=== PATIENT | female | born 1970 | race Caucasian/White ===

== ENCOUNTER 2017-10-19 07:22 | Emergency (ER) | payer OTHER ==
[2017-10-19 07:41] VITALS: BP 134/76
[2017-10-19] MEDS ORDERED: Albuterol/Ipratropium NEB.SOL* Albuterol 2.5 MG/Ipratropium 0.5 MG 3 ML INH ONE (07:56)
--- NOTE | 2017-10-19 08:05 | UC ---
Ayla Thomson Nilda, scribed for Sheila Joyner MD on 10/19/17 at 0746 . FLU HPI - HPI Summary HPI Summary: This patient is a 47 year old F [place] [facility] [place] a [place] complaint of constant flu-like symptoms for about a week. The patient rates the pain 6/10 in severity. Symptoms aggravated by movement and alleviated by rest and ibuprofen. Patient reports barking cough, fever (98.8-100.9F, since 10/17/17), myalgia, headache, fatigue, and burning lungs (since 10/13/17). Patient denies SOB. Pt states her cough is painful and tastes bloody. Pt notes shes on no prescribed medications. She states she has not used ibuprofen today. Nyquil last night. PT has not used her mdI since because did not think about it. Pt is non-smoker and does not drink ETOH. Pt has had recent sick contacts with students. Patients medication reviewed this visit. - History of Current Complaint Chief Complaint: UCGeneralIllness Stated Complaint: COUGH, FEVER Time Seen by Provider: 10/19/17 07:29 Hx Obtained From: Patient Hx Last Menstrual Period: 09/19/2017 Onset/Duration: Sudden Onset, Lasting Weeks, Still Present Severity Initially: Moderate Pain Intensity: 6 Pain Scale Used: 0-10 Numeric Associated Signs & Symptoms: Positive: Fever, T Max - 100.9 F, Myalgia, Cough, Headache - Allergy/Home Medications Allergies/Adverse Reactions: Allergies Allergy/AdvReac Type Severity Reaction Status Date / Time No Known Allergies Allergy Verified 10/19/17 07:32 PMH/Surg Hx/FS Hx/Imm Hx - Additional Past Medical History Additional PMH: scoliosis Previously Healthy: Yes Cardiovascular History: Other Other Cardiovascular History: Palpitations Respiratory History: Asthma, Other Other Respiratory History: sleep apnea, seasonal allergies Psychological History: Anxiety, Depression - Surgical History Surgical History: Yes Surgery Procedure, Year, and Place: COSMETIC EYE LID SURGERY. LASIK EYE SURGERY. CYST REMOVED FROM RIGHT THIGH - Family History Known Family History: Positive: Other - breast CA Negative: Cardiac Disease, Hypertension, Diabetes - Social History Occupation: Employed Full-time Lives: Alone Alcohol Use: Occasionally Alcohol Amount: 1-2 PER WEEK Substance Use Type: None Smoking Status (MU): Former Smoker Amount Used/How Often: 10 YEARS X1 PPD Have You Smoked in the Last Year: No When Did the Patient Quit Smoking/Using Tobacco: 1997 Review of Systems Constitutional: Fever, Fatigue ENT: Sore Throat, Nasal Discharge, Sinus Congestion Respiratory: Cough - painful, tastes bloody, Other - burning lungs; negative SOB Musculoskeletal: Myalgia Neurological: Headache All Other Systems Reviewed And Are Negative: Yes Physical Exam Triage Information Reviewed: Yes Completion Of Physical Exam Limited Due To: Altered Mental Status Appearance: Well-Nourished, Other: - coarse appearing cough Vital Signs: Initial Vital Signs Temp 99.5 F 10/19/17 07:33 Pulse 71 10/19/17 07:33 Resp 20 10/19/17 07:33 BP 134/76 10/19/17 07:33 Pulse Ox 99 10/19/17 07:33 Vital Signs Reviewed: Yes Eye Exam: Normal Eyes: Positive: Conjunctiva Clear ENT Exam: Normal ENT: Positive: Normal ENT inspection, Hearing grossly normal, Pharyngeal erythema, Nasal congestion, TMs normal, Other - turbinates inflammed and boggy Dental Exam: Normal Neck exam: Normal Neck: Positive: Supple, Nontender, No Lymphadenopathy Respiratory Exam: Normal Respiratory: Positive: Chest non-tender, No respiratory distress, No accessory muscle use, Other: - + coarse, congested cough scattered wheeze No rhonci Cardiovascular Exam: Normal Cardiovascular: Positive: RRR, No Murmur, Pulses Normal Bowel Sounds: Positive: Present Musculoskeletal Exam: Normal Musculoskeletal: Positive: Strength Intact Neurological Exam: Normal Neurological: Positive: Alert Psychological Exam: Normal Psychological: Positive: Normal Response To Family Skin Exam: Normal Diagnostics - Radiology cxr Radiology Interpretation Completed By: Radiologist - CXR, per radiologist, reveals THE MILD DEGREE OF PERIBRONCHIAL CUFFING COULD BE SEEN IN THE SETTING OF VIRAL PNEUMONIA, BRONCHITIS OR OTHER INFLAMMATORY LUNG DISEASE. Dr. Joyner has reviewed this radiology report. Re-Evaluation - Re-Evaluation First Eval Re-Evaluation Time: 08:44 Change: Improved Comment: Pt reports breathing feels markedly improved. wheezing resolved. motrin/apap. MDI. hydrate. secretion precautin. work note Flu Course/Dx - Course Course Of Treatment: PT with cough, congestion x 4 days with body aches. Pt has been taking OTC med with intermittent relief. + flu exposure. Pt with wheeze on exam. will check CXR and duoneb. no tamiflu second to duration - Differential Dx/Diagnosis Provider Diagnoses: influenza like syndrome Discharge - Discharge Plan Condition: Stable Disposition: HOME Prescriptions: Albuterol HFA INHALER* [Ventolin HFA Inhaler*] 1 puff INH Q4H PRN #1 mdi PRN Reason: wheeze Spacer/Aerosol-Holding Chamber [Aerochamber Mv] 1 mis PO Q24HR #1 mis Patient Education Materials: Influenza (ED) Referrals: Taylor Lala MD [Primary Care Provider] - Additional Instructions: - Stay well hydrated. Drink plenty of non-alcoholic, non-caffinated beverages. - Alternate ibuprofen (Advil, Motrin) 600mg and Tylenol every 3 hours for pain or fever. Take with food. Do NOT take for more than 4-5 days. - These infections are spread by secretions - do NOT share eating or drinking utensils - clean items you share with other people such as cell phones, computer mouse, TV remote, computer tablets, etc. once you start to feel better , change your toothbrush and your pillowcase. - talk to your CPAP supplier to discuss cleansing your equiptment - get plenty of restful sleep - Use your inhaler, 2 puffs, every 4 hours today. then every 4 hours as needed - humidify the air in the room where you sleep - boil water, run a hot steam shower, vaporizer, cups of water by heat register - okay to take over the counter decongestant and cough medication - contact your doctor or return with questions or concerns The documentation as recorded by the Ayla lilly Nilda accurately reflects the service I personally performed and the decisions made by me, Sheila Joyner MD.
--- NOTE | 2017-10-19 08:34 | RAD ---
INDICATION: Cough and fever COMPARISON: None TECHNIQUE: PA and lateral views of the chest were obtained. FINDINGS: The heart and mediastinum are normal in size and contour. There is a very mild degree of peribronchial cuffing. Otherwise the lungs are grossly clear. There is no evidence of large pleural effusion. Visualized bones are normal for the patient's age. There is no radiographic evidence of free air beneath the diaphragm IMPRESSION: THE MILD DEGREE OF PERIBRONCHIAL CUFFING COULD BE SEEN IN THE SETTING OF VIRAL PNEUMONIA, BRONCHITIS OR OTHER INFLAMMATORY LUNG DISEASE.
== END 2017-10-19 08:50 | disposition home or self-care (01) ==
LOC: UCEAST 07:22
DX: J11.1 Influenza due to unidentified influenza virus with other respiratory manifestations (principal); Z87.891 Personal history of nicotine dependence
CPT/HCPCS: 71046; 99212; A9270-GY; G0463

== ENCOUNTER 2017-12-14 08:30 | Emergency (ER) | payer OTHER ==
[2017-12-14 08:40] VITALS: BP 143/80
[2017-12-14] MEDS ORDERED: Naproxen TAB* 250 MG PO ONE (09:31)
--- NOTE | 2017-12-14 10:04 | RAD ---
HISTORY: Acute worsening chronic lower thoracic pain COMPARISONS: May 21, 2009 VIEWS: 4, Frontal and lateral views of the lower thoracic and lumbar spine while weightbearing. FINDINGS: ALIGNMENT: The alignment is normal. VERTEBRAL BODIES: The vertebral body heights are normal. The interpedicular distances are normal. JOINTS: There is facet osteoarthritis at L4-L5 and L5-S1 INTERVERTEBRAL DISCS: There is mild diffuse loss of intervertebral disc height. SOFT TISSUE: Unremarkable OTHER: The visualized lungs are clear. IMPRESSION: 1. MILD DEGENERATIVE DISC DISEASE. 2. FACET OSTEOARTHRITIS AT L4-L5 AND L5-S1
--- NOTE | 2017-12-14 10:05 | UC ---
Back Pain HPI - HPI Summary HPI Summary: 47 yo female with hx of chronic thoracic pain presents with the acute worsening of thoracic pain while trying to apply lotion to her back also has had LBP x a month which is new for her no bowel or bladder dysfunction - History of Current Complaint Chief Complaint: UCBackPain Stated Complaint: BACK PAIN Time Seen by Provider: 12/14/17 09:17 Hx Obtained From: Patient Hx Last Menstrual Period: 12/09/17 Onset/Duration: Sudden Onset - of worsening pain Timing: Constant Severity Initially: Severe Severity Currently: Severe Pain Intensity: 7 Pain Scale Used: 0-10 Numeric Character: Aching, Throbbing, Spasmodic Aggravating Factor(s): Movement Alleviating Factor(s): Nothing - Allergies/Home Medications Allergies/Adverse Reactions: Allergies Allergy/AdvReac Type Severity Reaction Status Date / Time No Known Allergies Allergy Verified 12/14/17 08:32 PMH/Surg Hx/FS Hx/Imm Hx Previously Healthy: Yes - Surgical History Surgical History: None Surgery Procedure, Year, and Place: COSMETIC EYE LID SURGERY. LASIK EYE SURGERY. CYST REMOVED FROM RIGHT THIGH - Family History Known Family History: Positive: Other - breast CA Negative: Cardiac Disease, Hypertension, Diabetes - Social History Alcohol Use: Occasionally Alcohol Amount: 1-2 PER WEEK Substance Use Type: None Smoking Status (MU): Former Smoker Amount Used/How Often: 10 YEARS X1 PPD Have You Smoked in the Last Year: No When Did the Patient Quit Smoking/Using Tobacco: 1997 Review of Systems Constitutional: Negative Skin: Negative Eyes: Negative ENT: Negative Respiratory: Negative Cardiovascular: Negative Gastrointestinal: Negative Genitourinary: Negative Motor: Negative Neurovascular: Negative Musculoskeletal: Myalgia Neurological: Negative Psychological: Negative Is Patient Immunocompromised?: No All Other Systems Reviewed And Are Negative: Yes Physical Exam Triage Information Reviewed: Yes Appearance: Well-Appearing, No Pain Distress, Well-Nourished Vital Signs: Initial Vital Signs Temp 98.3 F 12/14/17 08:37 Pulse 57 12/14/17 08:37 Resp 15 12/14/17 08:37 BP 143/80 12/14/17 08:37 Pulse Ox 100 12/14/17 08:37 Vital Signs Reviewed: Yes Eyes: Positive: Conjunctiva Clear ENT: Positive: Hearing grossly normal, Uvula midline. Negative: Nasal congestion, Nasal drainage, Trismus, Muffled voice, Hoarse voice Neck: Positive: Supple, Nontender, No Lymphadenopathy Respiratory: Positive: Lungs clear, Normal breath sounds, No respiratory distress, No accessory muscle use Cardiovascular: Positive: RRR, No Murmur Musculoskeletal: Positive: ROM Intact, No Edema Neurological: Positive: Alert, Other: - slow wide based gait, sensation intact Psychological Exam: Normal Skin Exam: Normal Diagnostics - Radiology No standard instances Xray Interpretation: No Acute Changes - 1. MILD DEGENERATIVE DISC DISEASE. 2. FACET OSTEOARTHRITIS AT L4-L5 AND L5-S1 Radiology Interpretation Completed By: Radiologist Back Pain Course/Dx - Differential Dx/Diagnosis Provider Diagnoses: lumbar strain. thoracic strain Discharge - Sign-Out/Discharge Documenting (check all that apply): Discharge - Discharge Plan Condition: Stable Disposition: HOME Patient Education Materials: Low Back Strain (ED), Thoracic Pain (ED) Referrals: Taylor Lala MD [Primary Care Provider] - 2 Weeks Additional Instructions: PT consult don't take muscle relaxant and drive or work aleve 1-2 twice daily with food for pain - Billing Disposition and Condition Condition: STABLE Disposition: HOME Images Front/Back of Body, Lg (Loup): 1 - pain 2 - pain
== END 2017-12-14 10:28 | disposition home or self-care (01) ==
LOC: UCEAST 08:30
DX: S39.012A Strain of muscle, fascia and tendon of lower back, initial encounter (principal); S29.012A Strain of muscle and tendon of back wall of thorax, initial encounter; X50.1XXA Overexertion from prolonged static or awkward postures, initial encounter; Y93.9 Activity, unspecified; Y92.9 Unspecified place or not applicable; M51.35 Other intervertebral disc degeneration, thoracolumbar region; M47.817 Spondylosis without myelopathy or radiculopathy, lumbosacral region; Z87.891 Personal history of nicotine dependence
CPT/HCPCS: 72080; 99212; A9270-GY; G0463

== ENCOUNTER 2018-06-26 06:20 | Day surgery (SDC) | payer OTHER ==
[~2018-06-26 06:20] MED LIST: Acetaminophen TAB* 325 MG PO PRN; Buffered Lidocaine 0.9% SYRIN* 5 ML/SYR SYRINGE INTRADERM ONE
[2018-06-26] MEDS ORDERED: Midazolam* 1 MG/ML 5 ML VIAL (5 MG) ONE (07:27)
[2018-06-26] MEDS ORDERED: Ondansetron INJ* 2 MG/ML VIAL ONE (07:28)
[2018-06-26] MEDS ORDERED: DiMENhydriNATE IV* 50 MG/ML VIAL ONE (07:28)
[2018-06-26] MEDS ORDERED: Cyclopentolate 1% OPTH.SOL* 2 ML BTL ONE (07:59)
[2018-06-26] MEDS ORDERED: Povidone Iodine 5% OPTH* 30 ML BTL ONE (07:59)
[2018-06-26] MEDS ORDERED: Tetracaine 0.5% OPTH.SOL 4 ML* 1 DROP BTL ONE (07:59)
[2018-06-26] MEDS ORDERED: Ketorolac 0.5% OPHTH (NF) 0.5 % 5 ML BTL ONE (07:59)
[2018-06-26] MEDS ORDERED: acetaZOLAMIDE TAB* 250 MG ONE (07:59)
[2018-06-26] MEDS ORDERED: Phenylephrine 2.5% OPTH.SOL* 2 ML BTL ONE (07:59)
[2018-06-26] MEDS ORDERED: Lidocaine 1%* 5 ML VIAL ONE (07:59)
[2018-06-26] MEDS ORDERED: Tropicamide 1% OPTH.SOL* BTL ONE (07:59)
[2018-06-26] MEDS ORDERED: Neomycin/Polymy/Dex OPHTH.OIN* 3.5 GM ONE (07:59)
[2018-06-26 08:16] VITALS: BP 130/75
--- NOTE | 2018-06-26 10:27 | OP ---
DATE OF OPERATION: 06/26/18 - [facility] DATE OF : 66 SURGEON: Kyle May MD ANESTHESIA: Monitored anesthesia care. PREOPERATIVE DIAGNOSIS: Cataract, left eye. POSTOPERATIVE DIAGNOSIS: Cataract, left eye. OPERATIVE PROCEDURE: Extracapsular cataract extraction of the left eye with intraocular lens implant. IMPLANT: SN60WF 17.0 diopter lens to the left eye. COMPLICATIONS: None. DESCRIPTION OF PROCEDURE: The patient was given phenylephrine 2.5 % and cyclopentolate 1% eye drops to the operative eye in the preoperative area. The patient was taken to the operating room where a time-out was taken to identify the correct patient, site, and side of surgery. The patient's left eye was prepped and draped in the usual sterile fashion with 5% Betadine. A second time- out was taken to verify the correct patient, side, and site of surgery, as well as the correct lens implant. A lid speculum was placed to the left eye. A 1mm paracentesis blade was used to make a clear corneal incision. Preservative-free 1% lidocaine was injected into the anterior chamber. DisCoVisc was then injected into the anterior chamber. A 2.75 mm keratome blade was used to make a triplanar incision. A cystotome initiated a capsulorrhexis, which was completed with Utrata forceps in a continuous and curvilinear manner. Hydrodissection of the lens was performed with BSS on a cannula. The lens could be spun in a capsular bag. The phacoemulsification handpiece was used with a divide-and- conquer technique to remove the nucleus. The I/A handpiece then removed the residual cortical lens material. DisCoVisc was injected to inflate the capsular bag. The planned SN60WF 17.0 diopter lens was injected into the capsular bag. The residual DisCoVisc was removed from the eye with the I/A handpiece. The corneal incisions were hydrated and no leaks occurred at physiologic pressure around 20 mmHg per palpation. The lid speculum was removed and drapes were removed. Maxitrol ointment was placed to the surface of the operative eye. An adhesive patch and shield was then placed on the operative eye. The patient was taken to the postoperative area in stable condition. [id number]/[facility] #: [id number] [facility]
== END 2018-06-26 08:18 | disposition home or self-care (01) ==
LOC: OREAST 06:20
PROVIDERS: ATTEND Student in an Organized Health Care Education/Training Program
DX: H25.042 Posterior subcapsular polar age-related cataract, left eye (principal); H50.34 Intermittent alternating exotropia; H25.041 Posterior subcapsular polar age-related cataract, right eye; H02.421 Myogenic ptosis of right eyelid; G47.33 Obstructive sleep apnea (adult) (pediatric); F33.9 Major depressive disorder, recurrent, unspecified; Z87.891 Personal history of nicotine dependence; J30.89 Other allergic rhinitis
CPT/HCPCS: A9270-GY; J1240; J2250; J2405; V2632

== ENCOUNTER 2019-08-23 07:24 | Emergency (ER) | payer OTHER ==
[2019-08-23 07:31] VITALS: BP 126/59
--- NOTE | 2019-08-23 08:03 | UC ---
Throat Pain/Nasal Dewey HPI - HPI Summary HPI Summary: 48-year-old female comes in with a chief complaint of upper respiratory tract infection symptoms for about 5 days. Initially started with a sore throat. It has moved up into her sinuses. History [id number] medicines which might be helping some but not very much. Overall she's getting worse. Also has a cough and some chest congestion. Has not seen any of her rhinorrhea or sputum. - History of Current Complaint Chief Complaint: UCRespiratory Stated Complaint: urI Time Seen by Provider: 08/23/19 07:53 Hx Last Menstrual Period: 12/09/17 Pain Intensity: 5 - Allergies/Home Medications Allergies/Adverse Reactions: Allergies Allergy/AdvReac Type Severity Reaction Status Date / Time No Known Allergies Allergy Verified 08/23/19 07:31 Home Medications: Home Medications Dm/Acetaminophen/Doxylamine [Vicks Nyquil Cold & Flu N 15-6.25-325 mg] 2 cap PO ONCE 08/23/19 [History Confirmed 08/23/19] Ibuprofen 600 mg PO ONCE 08/23/19 [History Confirmed 08/23/19] PMH/Surg Hx/FS Hx/Imm Hx Previously Healthy: Yes - Surgical History Surgical History: Yes Surgery Procedure, Year, and Place: COSMETIC EYE LID SURGERY, as a child. LASIK EYE SURGERY left eye, prk right eye. CYST REMOVED FROM RIGHT THIGH - Family History Known Family History: Positive: Other - breast CA Negative: Cardiac Disease, Hypertension, Diabetes - Social History Alcohol Use: Occasionally Alcohol Amount: 1-2 PER WEEK Substance Use Type: None Smoking Status (MU): Former Smoker Amount Used/How Often: 10 YEARS X1 PPD Have You Smoked in the Last Year: No When Did the Patient Quit Smoking/Using Tobacco: 1997 Review of Systems All Other Systems Reviewed And Are Negative: Yes Constitutional: Positive: Other - see hpi Skin: Positive: Negative Eyes: Positive: Negative ENT: Positive: Sore Throat Respiratory: Positive: Cough Cardiovascular: Positive: Negative Gastrointestinal: Positive: Negative Motor: Positive: Negative Neurovascular: Positive: Negative Musculoskeletal: Positive: Negative Neurological: Positive: Negative Psychological: Positive: Negative Is Patient Immunocompromised?: No Physical Exam Triage Information Reviewed: Yes Appearance: No Pain Distress, Well-Nourished, Ill-Appearing - mild Vital Signs: Initial Vital Signs Temp 98.2 F 08/23/19 07:28 Pulse 83 08/23/19 07:28 Resp 18 08/23/19 07:28 BP 126/59 08/23/19 07:28 Pulse Ox 97 08/23/19 07:28 Vital Signs Reviewed: Yes Eye Exam: Normal Eyes: Positive: Conjunctiva Clear ENT: Positive: Pharyngeal erythema, TMs normal Neck: Positive: Supple Respiratory: Positive: Lungs clear, Normal breath sounds, No respiratory distress Cardiovascular: Positive: RRR Musculoskeletal: Positive: Strength Intact, ROM Intact Neurological: Positive: Alert, Muscle Tone Normal Psychological: Positive: Age Appropriate Behavior Skin Exam: Normal Throat Pain/Nasal Course/Dx - Course Course Of Treatment: DISCUSSED VIRAL VERSES BACTERIAL INFECTIONS AND THE ROLE OF ANTIBIOTICS. THE PATIENT PREFERS TO BE ON ANTIBIOTICS AT THIS TIME. - Differential Dx/Diagnosis Provider Diagnosis: Pharyngitis, Upper respiratory infection Discharge ED - Sign-Out/Discharge Documenting (check all that apply): Patient Departure All imaging exams completed and their final reports reviewed: No Studies - Discharge Plan Condition: Stable Disposition: HOME Prescriptions: Amoxicillin PO (*) [Amoxicillin 875 MG (*)] 875 mg PO BID #20 tab Patient Education Materials: Pharyngitis (ED), Upper Respiratory Infection (ED) Referrals: Taylor Lala MD [Primary Care Provider] - Additional Instructions: FOLLOW UP WITH YOUR DOCTOR IF NOT COMPLETELY IMPROVED. GET REEVALUATED SOONER IF NOT IMPROVED OR WORSE OR ANY QUESTIONS OR CONCERNS. - Billing Disposition and Condition Condition: STABLE Disposition: Home
== END 2019-08-23 08:09 | disposition home or self-care (01) ==
LOC: UCEAST 07:24
DX: J02.9 Acute pharyngitis, unspecified (principal); J06.9 Acute upper respiratory infection, unspecified; Z87.891 Personal history of nicotine dependence
CPT/HCPCS: 99212; G0463